=== PATIENT | male | born 1950 | race Caucasian/White ===

== ENCOUNTER 2018-03-31 13:21 | Outpatient (CLI) | payer MEDICARE ==
[~2018-03-31 13:21] MED LIST: Gadobenate Dimeglumine 529 MG/1 ML (20ML VIAL) ONE
--- NOTE | 2018-03-31 16:25 | MRI ---
MRI PELVIS AND PROSTATE WITH AND WITHOUT CONTRAST: HISTORY: Prostate cancer, status post biopsy eight weeks ago. Sarah 7 in the right base of the prostate. COMPARISON: None. TECHNIQUE: Multiplanar, multisequence MR images were obtained of the prostate with and without IV contrast. FINDINGS: There is moderate hypertrophy of the central gland, consistent with BPH. Prostate volume is approxim ately 63 mL. There is a small amount of T1 signal in the peripheral zone of the right prostate, cons istent with blood from previous biopsy. There is a wedge-shaped area demonstrating 1.4 cm of low T2 signal in the right peripheral zone of the prostate, near the mid portion of the gland. This demonst rates moderately hypointense signal on the ADC map and isointense to mildly hyperintense signal on th e DWI sequence, in this location. There is subtle enhancement of this region. No other abnormality is seen in the peripheral zone of the prostate or in the central gland. A prominent median lobe of t he prostate is seen. There are scattered diverticula in the colon. No pelvic adenopathy is seen. The seminal vesicles an d neurovascular bundles are intact. There is a lipoma within one of the right hip rotator muscles. IMPRESSION: There is a lesion in the peripheral zone of the right prostate. This is a PI-RADS category 3 lesion but with enhancement of this lesion, it is upgraded to a PI-RADS category 4 lesion. This patient holden s a high likelihood that a clinically significant cancer is present. POS: TYRONE
== END 2018-03-31 13:22 | disposition home or self-care (01) ==
LOC: TBSIIMAG 13:21
PROVIDERS: ATTEND Urology
DX: C61 Malignant neoplasm of prostate (principal); N42.9 Disorder of prostate, unspecified
CPT/HCPCS: 72197; 82565; A9579

== ENCOUNTER 2018-07-15 01:03 | Outpatient (CLI) | payer MEDICARE ==
--- NOTE | 2018-07-15 13:46 | RAD ---
TWO VIEWS CHEST: Comparison: None. History: Pre-operative radiograph. FINDINGS: Two views of the chest show normal sized cardiomediastinal silhouette. There is no evidence of consol idation, mass, or pleural effusion. The bones are unremarkable. IMPRESSION: No evidence of acute cardiopulmonary disease. POS: C
[2018-07-15 14:20] LABS: #Basophils 0.1 thou/uL (0.0-0.2); #Eosinphils 0.1 thou/uL (0.0-0.7); #Lymphocytes 1.6 thou/uL (1.20-3.40); #Monocytes 0.6 thou/uL (0.11-0.59); #Neutrophils 3.6 thou/uL (1.40-6.50); %Basophils 0.9 % (0.0-1.0); %Eosinophils 2.1 % (0.0-10.0); %Lymphocytes 26.1 % (21.0-51.0); %Monocytes 9.5 % (0.0-10.0); %Neutrophils 61.4 % (42.0-75.0); Hemoglobin 14.7 g/dL (14.0-18.0); Mean Corpuscular HGB CONC 33.6 g/dL (32.0-36.0); Mean Corpuscular Hemoglobin 32.1 pg (27.0-31.0); Mean Corpuscular Volume 95.4 fL (78.0-98.0); Platelet Count 336 thou/uL (130-400); RBC Distribution Width 11.8 % (11.5-14.5); Red Blood Cell (RBC) Count 4.58 mill/uL (4.70-6.10); White Blood Cell (WBC) Count 5.9 thou/uL (4.8-10.8)
[2018-07-15 14:26] LABS: Prothrombin Time 13.1 SEC (12.0-14.7)
[2018-07-15 14:30] LABS: Bilirubin Negative (Negative); Blood, Urine Negative (Negative); Clarity CLEAR (Clear); Glucose, Urine (Dipstick) Negative (Negative); Leukocyte Trace (Negative); Nitrite Negative (Negative); Protein, Urine (Dipstick) Negative (Neg-Trace); Specific Gravity, Urine 1.008 (1.002-1.036); Urobilinogen 0.2 mg/dL (0.2-1.0); pH, Urine 5.5 (5.0-9.0)
[2018-07-15 14:41] LABS: Bacteria/HPF None Seen HPF (None Seen); Hyaline Casts/LPF 0-3 HYALINE CAST LPF (0-3 Hyaline); RBC/HPF 0-3 HPF (0-3); Squamous Epithelial None Seen HPF (0-3); WBC/HPF None Seen HPF (0-3)
[2018-07-15 14:42] LABS: ALT (SGPT) 36 U/L (8-55); AST (SGOT) 31 U/L (5-34); Albumin 4.9 g/dL (3.4-4.8); Alkaline Phosphatase 53 U/L (40-150); Anion Gap 16 mmol/L (10-20); BUN (Urea Nitrogen) 8 mg/dL (8.4-25.7); Bilirubin, Total 1.2 mg/dL (0.2-1.2); Calc. Creatinine Clearance 0 mL/min (70-130); Carbon Dioxide 24 mmol/L (23-31); Chloride 96 mmol/L (98-107); Estimated GFR-MDRD Greater than 90; Globulin 3.1 g/dL (2.4-3.5); Glucose 73 mg/dL (80-115); Potassium 4.2 mmol/L (3.5-5.1); Sodium 132 mmol/L (136-145)
[2018-07-15 14:56] LABS: Urine Culture Reflex Yes Yes
== END 2018-07-15 01:04 | disposition home or self-care (01) ==
LOC: LABBT 01:03
PROVIDERS: ATTEND Urology
DX: Z01.812 Encounter for preprocedural laboratory examination (principal); C61 Malignant neoplasm of prostate
CPT/HCPCS: 71046; 80053; 81001; 85025; 85610; 85730; 87086

== ENCOUNTER 2018-07-15 14:30 | Inpatient (IN) | payer MEDICARE ==
[2018-07-15 12:13] VITALS: BMI 25.5
[2018-07-24] MEDS ORDERED: cefOXitin Sodium/Dextrose,Iso 1 GM in Premix Bag 50 BAG IVPB SCH (06:30)
[2018-07-24] MEDS ORDERED: Gentamicin Sulfate 80 MG in Premix Bag 1 BAG IVPB SCH (06:30)
[2018-07-24] MEDS ORDERED: Fentanyl 100 MCG/2 ML VIAL ONE ×5 (06:38→15:29)
[2018-07-24] MEDS ORDERED: Midazolam HCl 2 mg/2 ml Vial ONE (06:38)
[2018-07-24] MEDS ORDERED: Dexamethasone 4 mg/ml Vial ONE (06:38)
[2018-07-24] MEDS ORDERED: Iothalamate Meglumine 60% 50 ML VIAL FS ONE (07:13)
[2018-07-24] MEDS ORDERED: Fentanyl 250 MCG/5 ML VIAL ONE (08:49)
[2018-07-24] MEDS ORDERED: B & O ONE (09:53)
[2018-07-24] MEDS ORDERED: Promethazine HCl 25 MG/ML VIAL IM PRN (09:58)
[2018-07-24] MEDS ORDERED: Promethazine HCl 25 MG/ML VIAL SLOW IVP PRN (09:58)
[2018-07-24] MEDS ORDERED: Ondansetron HCl/PF 4 MG/2 ML Vial IVP PRN (09:58)
[2018-07-24] MEDS ORDERED: Bupivacaine HCl 0.5%/Epinephrine 1:200,000/PF 30 ml Vial ONE (13:47)
[2018-07-24 15:25] LABS: Hemoglobin 13.4 g/dL (14.0-18.0); Mean Corpuscular HGB CONC 32.9 g/dL (32.0-36.0); Mean Corpuscular Volume 97.3 fL (78.0-98.0); Mean Platelet Volume 7.6 fL (7.4-10.4); Platelet Count 287 thou/uL (130-400); RBC Distribution Width 11.9 % (11.5-14.5); White Blood Cell (WBC) Count 11.3 thou/uL (4.8-10.8)
--- NOTE | 2018-07-24 15:38 | RAD ---
ONE VIEW ABDOMEN: HISTORY: Evaluate stent placement. FINDINGS: Nonspecific bowel gas pattern. Double-J left and right ureteral stents appear to be appropriately positioned. There appears to be subcutaneous air in the left hemiabdomen which may be secondary to a drainage cat heter. IMPRESSION: 1. Bilateral ureteral stents as above. 2. Subcu air in the left hemiabdomen likely due to introduction of a drainage catheter which ter minates in the pelvis. POS: BRAYAN
[2018-07-24 15:39] LABS: Anion Gap 14 mmol/L (10-20); BUN (Urea Nitrogen) 9 mg/dL (8.4-25.7); Calc. Creatinine Clearance 91 mL/min (70-130); Calcium 9.2 mg/dL (7.8-10.44); Carbon Dioxide 23 mmol/L (23-31); Chloride 102 mmol/L (98-107); Estimated GFR-MDRD 81; Glucose 152 mg/dL (80-115); Potassium 4.1 mmol/L (3.5-5.1); Sodium 135 mmol/L (136-145)
[2018-07-24] MEDS ORDERED: oxyCODONE 5 MG TAB PO PRN (16:02)
[2018-07-24] MEDS ORDERED: Hyoscyamine Sulfate SL 0.125 mg Tablet SL PRN (16:02)
[2018-07-24] MEDS ORDERED: Fentanyl 100 MCG/2 ML VIAL SLOW IVP PRN (16:02)
[2018-07-24] MEDS ORDERED: Oxybutynin 5 MG TAB PO PRN (16:02)
[2018-07-24] MEDS ORDERED: diphenhydrAMINE 25 MG CAP PO PRN (16:02)
[2018-07-24] MEDS ORDERED: hydrALAZINE 20 MG/ML VIAL SLOW IVP PRN (16:02)
[2018-07-24] MEDS ORDERED: Ondansetron PF 4 MG/2 ML Vial IVP PRN (16:02)
[2018-07-24] MEDS ORDERED: Mag-Al 1200 mg/1200 mg/30 ML UDCUP PO PRN (16:02)
[2018-07-24] MEDS ORDERED: Dexamethasone 20 MG/5 ML VIAL ONE (16:26)
[2018-07-24] MEDS ORDERED: ePHEDrine 50 MG/ML VIAL ONE (16:26)
[2018-07-24] MEDS ORDERED: Ondansetron PF 4 MG/2 ML Vial ONE (16:26)
[2018-07-24] MEDS ORDERED: PROPOFOL 200 MG/20 ML VIAL ONE (16:26)
[2018-07-24] MEDS ORDERED: Rocuronium Bromide 10 MG/ML (10ML VIAL) ONE (16:26)
[2018-07-24] MEDS ORDERED: Glycopyrrolate 0.2 MG/ML 5 ML SYRINGE ONE (16:26)
[2018-07-24] MEDS: Acetaminophen 500 MG TAB PO SCH ×2 (16:49→21:14)
[2018-07-24] MEDS: cefOXitin 1.5 GM in Sodium Chloride 0.9% 100 ML IVPB SCH (16:49)
[2018-07-24] MEDS: oxyCODONE 5 MG TAB PO PRN (16:50)
[2018-07-24] MEDS: Sodium Chloride 0.9% 1,000 ML IV SCH ×2 (16:54→23:26)
--- NOTE | 2018-07-24 17:59 | OP ---
DATE OF PROCEDURE: 07/24/2018 SERVICE: Urology. PREOPERATIVE DIAGNOSIS: Prostate cancer. POSTOPERATIVE DIAGNOSIS: Prostate cancer. PROCEDURE PERFORMED: Robot-assisted laparoscopic prostatectomy with bilateral nerve sparing. INDICATIONS FOR PROCEDURE: Mr. Del Castillo is a 68-year-old white male, who [place] with an elevated PSA of 8. This subsequently when rechecked was came down to 6. He underwent a prostate biopsy which demonstrated [place] 3 + 4 prostate cancer in four cores, primarily on the right. An MRI of the prostate demonstrated no evidence of extracapsular extension, seminal vesicle invasion, or metastatic disease into the lymph nodes. Risks and benefits of treatment options were discussed and he has elected to go for robotic-assisted laparoscopic prostatectomy. DESCRIPTION OF PROCEDURE: After identification of armband and verification of consent, the patient was brought back initially in the cystoscopy suite, where he underwent general anesthesia with endotracheal intubation. He had been prepped with the ERAS protocol. A 21-[place] rigid cystoscope was introduced per urethra into the bladder. The large median lobe was noted upon entry. Both ureters were found in orthotopic location. The right ureter was first cannulated with a 0.035 Sensor wire up to the level of the renal pelvis. A 6 x 26 double-J stent was advanced over the Sensor wire up to the level of renal pelvis and then the wire removed leaving a good curl in the kidney and a good curl in the bladder. The same procedure was repeated on the left for another 6 x 26 double-J stent so that he had bilateral stents in , as the ureters were in relatively close proximity to the large median lobe and I did not want to risk injury of the ureters. While the patient was still asleep, he was transported from the cystoscopy suite over to the robotic room where he was positioned in the standard robotic fashion in the low lithotomy with approximately 40-degree angled Trendelenburg. He was then prepped and draped in the usual sterile fashion. A 16-[place] Banda catheter was inserted to the patient's bladder, and then Veress needle entry was used to insufflate the pneumoperitoneum under high flow low pressure. Once pneumoperitoneum was achieved, a small incision was made below the umbilicus for entry using a 12 mm port. Inspection of the peritoneum demonstrated no vascular bowel injuries and the peritoneum was favorable to proceed forward with the surgery. Remainder of the ports were placed in the standard robotic fashion under direct vision with a 15 mm robotic port on the right along with an 11 mm integration assistant port and 5 mm integration assistant port. The left side had two 8 mm ports. The robot was then docked and the robotic portion of the surgery was begun. We began by mobilizing the sigmoid colon which was somewhat tethered to the left peritoneal wall. The rectum was then retracted cephalad, and an incision was made on the anterior aspect of the rectovesical pouch. Dissection was carried out to the seminal vesicles and vas deferens, which were identified and then from the surrounding tissues. Cautery was used for the majority of dissection except near the tips of the seminal vesicles and along the lateral aspect of the seminal vesicle dissection, where minimal cautery was used to avoid nerve injury as the patient did desire a nerve-sparing prostatectomy. Once the seminal vesicles were completely cleared, the posterior space was developed below Denonvilliers fascia along the rectum up to near the apex of the prostate. A Surgicel was left in the space and then attention turned to the bladder. Incision was made lateral to both medial umbilical ligaments into the space of Retzius bilaterally. The space was developed until the pubic arch could be identified. The medial umbilical ligaments were then cauterized and divided, and a connection made between the two cauterized sites to mobilize the bladder. The bladder was then dropped by dissecting through the loose areolar tissue, holding the bladder up to the anterior abdominal wall. This was carried out until the entire pubic arch could be identified. This was cleared off the surrounding tissues and then the periprosthetic space developed with blunt dissection and electrocautery. The preprostatic fat was mobilized and removed off the prostate and bladder neck and sent off for routine pathologic evaluation. The endopelvic fascia was then divided on the right and then the left, taking care to minimize cautery usage towards the nerves. Once the space was fully dissected, the puboprostatic ligaments were taken down with the monopolar cautery, and then the vascular stapler was used to divide the dorsal venous complex, ensuring that the urethral catheter was fully mobile and was not involved within the stapler jaws. Once DVC was divided, attention was turned to the bladder neck, which was divided using monopolar cautery. Dissection was carried down until the catheter could be identified. The bladder neck had to be extended slightly in order to deliver the median lobe through the dissection plane. A suture was brought in to retract the median lobe and prostate anteriorly to allow for adequate exposure of the backside of the median lobe. Dissection was carried out through the posterior aspect of the median lobe into the bladder neck and then into the previously dissected space where the seminal vesicles had been previously identified. The seminal vesicles were delivered upward along with the vas deferens and the previously placed Surgicel was removed. The pedicles were then ligated with a 2-0 V-Loc stitch on both sides and then the pedicle was dissected sharply. If cautery was used, it was pinpoint bipolar cautery while irrigating with iced/chilled saline to avoid for thermal injury to the nerves. The nerves were able to be dissected off along the length of the prostate all the way to the apex of the prostate. The pedicles were divided without clips using pinpoint bipolar cautery only on the exposed vessels with chilled saline irrigation during cauterization to avoid neural injury. The remainder of the DVC was then divided with monopolar cautery, and the urethra was dissected free of its surrounding attachments. The neurovascular bundles were dissected free on both sides of the prostate to complete the nerve sparing. The urethra was divided close to the prostate for adequate urethral stump. The rectourethralis subsequently divided. The prostate was then freed and deposited in the right pericolic gutter. The neurovascular bundles were then inspected. There did not appear to be any bleeding or anything concerning for oozing. There did not appear to be any kind of rectal injury. Surgicel was laid down over the rectal bed, and the Akshat stitch was then placed using a 2-0 V-Loc suture to approximate the base of the bladder and the urethra. The anastomotic suture was then completed using a 2-0 V-Loc suture in a running fashion circumferentially around the bladder neck and urethra, taking care not to injure the nerves nearby during the anastomosis. The final catheter which was an 18-[place] Banda was passed with ease into the bladder, and 15 mL of sterile water placed into the balloon. The bladder was leak tested. There did not appear to be any leak from the anastomosis. The catheter was then secured against the bladder neck, and Tisseel spray was sprayed around the periprosthetic space and previous prostatic fossa along with the pubic arch and anywhere else that was at risk for bleeding. The specimens were then placed into Endopouch bag, and #19 ALIVIA was brought into the #3 arm and positioned posterior to the bladder. The robot was then undocked, and a Bulmaro-Bebo needle was used to close the 15 mm and 11 mm port. The specimen bag was also transferred out to the umbilical camera port. The insufflation was then taken down and the specimen was extracted through the umbilical incision. The incision was then closed with 0 Vicryl with [id number] sutures. The skin was then closed with a 4-0 Monocryl in a subcuticular fashion and Dermabond was applied. The surgeon placed a 16-A B and O suppository directly into the patient's rectum. There was no blood on the examining gloved finger. The catheter was irrigated and found to be light pink with no clots. The patient had his catheter affixed with a StatLock. He was then awakened and taken to PACU for recovery in stable condition. COMPLICATIONS: None. ESTIMATED BLOOD LOSS: Approximately 400 mL. RETAINED TUBES AND DRAINS: An 18-[place] Banda catheter, #19 ALIVIA drain. SPECIMENS: Prostate, bilateral seminal vesicles, periprosthetic fat. DISPOSITION: The patient will be kept in the hospital overnight. We will plan possible discharge in the morning pending his labs and how he is feeling. Job ID: [id number] [facility]
[2018-07-24] MEDS: Ketorolac Tromethamine 30 MG/ML VIAL IVP SCH ×2 (18:11→23:22)
[2018-07-24] MEDS: Docusate 100 MG CAP PO SCH (21:13)
[2018-07-24] MEDS: traMADol HCl 50 MG TAB PO SCH (21:14)
[2018-07-24] MEDS: Nicotine 21 MG PATCH TOP SCH (21:35)
[2018-07-25] MEDS: cefOXitin 1.5 GM in Sodium Chloride 0.9% 100 ML IVPB SCH ×2 (00:45→10:39)
[2018-07-25] MEDS: oxyCODONE 5 MG TAB PO PRN ×4 (02:47→18:26)
[2018-07-25] MEDS: Acetaminophen 500 MG TAB PO SCH ×4 (04:32→21:35)
[2018-07-25 06:03] LABS: #Lymphocytes 1.4 thou/uL (1.20-3.40); #Neutrophils 6.9 thou/uL (1.40-6.50); %Basophils 0.1 % (0.0-1.0); %Eosinophils 0.1 % (0.0-10.0); %Lymphocytes 14.8 % (21.0-51.0); %Monocytes 10.9 % (0.0-10.0); %Neutrophils 74.2 % (42.0-75.0); Hemoglobin 10.7 g/dL (14.0-18.0); Mean Corpuscular HGB CONC 33.2 g/dL (32.0-36.0); Mean Corpuscular Hemoglobin 32.6 pg (27.0-31.0); Mean Corpuscular Volume 98.1 fL (78.0-98.0); Mean Platelet Volume 7.5 fL (7.4-10.4); Platelet Count 254 thou/uL (130-400); RBC Distribution Width 11.8 % (11.5-14.5); Red Blood Cell (RBC) Count 3.29 mill/uL (4.70-6.10); White Blood Cell (WBC) Count 9.3 thou/uL (4.8-10.8)
[2018-07-25] MEDS: Ketorolac Tromethamine 30 MG/ML VIAL IVP SCH ×4 (06:16→23:36)
[2018-07-25 06:21] LABS: Anion Gap 13 mmol/L (10-20); BUN (Urea Nitrogen) 8 mg/dL (8.4-25.7); Calc. Creatinine Clearance 107 mL/min (70-130); Calcium 8.5 mg/dL (7.8-10.44); Carbon Dioxide 21 mmol/L (23-31); Chloride 103 mmol/L (98-107); Estimated GFR-MDRD Greater than 90; Glucose 108 mg/dL (80-115); Potassium 3.9 mmol/L (3.5-5.1); Sodium 133 mmol/L (136-145)
[2018-07-25] MEDS ORDERED: Hydrochlorothiazide 25 MG TAB PO SCH (09:00)
[2018-07-25] MEDS: traMADol HCl 50 MG TAB PO SCH ×2 (09:49→21:42)
[2018-07-25] MEDS: Lisinopril 20 MG TAB PO SCH (09:50)
[2018-07-25] MEDS: Docusate 100 MG CAP PO SCH ×2 (10:07→21:35)
[2018-07-25] MEDS: Sodium Chloride 0.9% 1,000 ML IV SCH (18:29)
[2018-07-25] MEDS: Nicotine 21 MG PATCH TOP SCH (21:36)
[2018-07-26] MEDS: Acetaminophen 500 MG TAB PO SCH ×2 (03:56→10:11)
[2018-07-26] MEDS: Ketorolac Tromethamine 30 MG/ML VIAL IVP SCH ×2 (06:13→13:55)
[2018-07-26] MEDS ORDERED: Hydrochlorothiazide 25 MG TAB PO SCH ×2 (09:00)
[2018-07-26] MEDS: traMADol HCl 50 MG TAB PO SCH (09:01)
[2018-07-26] MEDS: Lisinopril 20 MG TAB PO SCH (09:02)
[2018-07-26] MEDS: Docusate 100 MG CAP PO SCH ×2 (09:03→09:04)
[2018-07-26 12:03] VITALS: BP 160/89; TEMP 97.9
--- NOTE | 2018-07-26 14:07 | PRG ---
DATE OF SERVICE: 07/25/2018 SUBJECTIVE: The patient states he is doing well currently. He had a lot of severe gas pain last night with abdominal distention. He was advised to walk which then resulted in the gas dispersing and him passing a large amount of gas. From that point, he has had no pain and states he is feeling very good. His appetite is slightly increased, but he is still on a clear liquid diet. He denies any nausea or vomiting. OBJECTIVE: VITAL SIGNS: Temperature 97.9, pulse 88, respirations 16, blood pressure 144/89, saturation 97% on room air. GENERAL: No apparent distress. CARDIOVASCULAR: Regular rate and rhythm. ABDOMEN: Soft, mildly distended, and nontender. Incision is clean, dry, and intact. : Banda catheter in place with clear yellow urine. ALIVIA with serosanguineous fluid. EXTREMITIES: No clubbing, cyanosis, or edema. LABORATORY EVALUATION: The full set of labs in the [employer] system which I have reviewed. Of note, the patient's white count is 9.3 with hemoglobin of 10.7. Creatinine is 0.79 with a sodium of 133. ASSESSMENT AND PLAN: A 68-year-old white male status post robot-assisted laparoscopic prostatectomy postop day 1 with some gaseous distention and mild ileus which has resolved with walking. He is doing much better, but has requested a stay in the hospital one additional night. I think this is not unreasonable to ensure that he does not develop a full ileus and his bowels are working okay. Since he is hungry and passing a lot of gas now, I will go ahead and advance him to regular diet and see how he does. If he is doing well, he could probably be discharged tomorrow. Job ID: [id number]
--- NOTE | 2018-07-26 14:21 | PRG ---
DATE OF SERVICE: 07/26/2018 SUBJECTIVE: The patient states he is doing very well. He had no pain overnight and feels excellent. He is tolerating a regular diet without problems. He has been walking. He is passing a lot of gas, but has not had a bowel movement. Denies any nausea or vomiting. OBJECTIVE: VITAL SIGNS: Temperature 97.9, pulse 74, respirations 18, blood pressure 160/89, and saturation 96% on room air. GENERAL: No apparent distress, communicating, and alert. CARDIOVASCULAR: Regular rate and rhythm. ABDOMEN: Soft, nontender, and nondistended. Positive bowel sounds. Nondistended. Incisions clean, dry, and intact. ALIVIA serosanguineous. : Banda catheter in place with clear yellow urine. EXTREMITIES: No clubbing, cyanosis, or edema. LABORATORY DATA: On laboratory evaluation, there are no new labs to review today. ASSESSMENT: A 68-year-old white male with prostate cancer, status post robot assisted laparoscopy technique, postop day two with good recovery of bowel function. No pain. I think the patient can have a ALIVIA removed. It is only put out 40 mL overnight. He can go home with his Banda catheter in place and I will. PLAN: To see him back in 2 weeks for a cystogram and void trial. This concludes an operative SI progress note for Gamal Del Castillo being dictated by Dr. Sanz. Job ID: [id number]
--- NOTE | 2018-07-26 14:23 | DIS ---
DATE OF ADMISSION: 07/24/2018 DATE OF DISCHARGE: 07/26/2018 ADMITTING DIAGNOSIS: Prostate cancer. DISCHARGE DIAGNOSIS: Prostate cancer. DISCHARGING PHYSICIAN: Jakob Sanz MD PROCEDURE PERFORMED: Robot-assisted laparoscopic prostatectomy with bilateral nerve-sparing. BRIEF HISTORY: Mr. Del Castillo is a 68-year-old white male with [place] 3 + 4 prostate cancer in 4 cores with a PSA of 6. He has elected to undergo a prostatectomy. Full H and P can be found in the scanned portion of the [employer] system. HOSPITAL COURSE: After his surgery (please see operative note for details), the patient was kept in the hospital overnight for recovery. He had a significant amount of gas distention due to drinking too much fluids too quickly on his first night. This caused him significant discomfort, but with walking, he was able to disperse this and felt significantly better after passing a large amount of gas. He elected to stay in the hospital an additional night. He remained on the ERAS protocol with almost no pain after his gas pains resolved. He tolerated a regular diet and was ambulating well. He had learned how to take care of his catheter. His ALIVIA only put out approximately 130 mL in the first night and 40 mL the second night. The ALIVIA was removed prior to discharge. He felt excellent and was cleared for discharge on postoperative day #2. DISPOSITION: Discharge to home with Banda catheter. DISCHARGE CONDITION: Good. DISCHARGE MEDICATIONS: Include resuming all of his home medications. In addition, he will be given [place] 5/325 mg 1 to 2 tabs p.o. q.4 hours p.r.n. pain and oxybutynin 5 mg p.o. t.i.d. p.r.n. bladder spasms. He will follow up with me in 2 weeks for a cystogram and void trial. DISCHARGE INSTRUCTIONS: Include no heavy lifting or strenuous activities, to take care of his catheter at all times and avoid pulling or tugging. He is not to submerge, but may shower and is not to lift anything over 20 pounds. He is not to drive while the catheter is in. Job ID: [id number]
== END 2018-07-26 14:21 | disposition home or self-care (01) | DRG 707 ==
LOC: SURG A 07-24 05:33 → SURG B 07-24 15:56
PROVIDERS: ADMIT Urology; ATTEND Urology
PROC: 0VT04ZZ Resection of Prostate, Percutaneous Endoscopic Approach (ICD-10-PCS; principal; 2018-07-24)
PROC: 0VT34ZZ Resection of Bilateral Seminal Vesicles, Percutaneous Endoscopic Approach (ICD-10-PCS; 2018-07-24)
PROC: 8E0W4CZ Robotic Assisted Procedure of Trunk Region, Percutaneous Endoscopic Approach (ICD-10-PCS; 2018-07-24)
DX: C61 Malignant neoplasm of prostate (principal); K56.7 Ileus, unspecified; Z79.899 Other long term (current) drug therapy
CPT/HCPCS: 36415; 74018; 76000; 80048; 85025; 85027; 86850; 86900; 86901; 88309; C1769; J0670; J0694; J1100; J1580; J1642; J1885; J2250; J2405; J2704; J3010; J3490; J7050; Q9961

== ENCOUNTER 2018-08-05 09:21 | Outpatient (CLI) | payer MEDICARE ==
--- NOTE | 2018-08-05 11:38 | RAD ---
CYSTOGRAM: History: Prostatectomy. FINDINGS: Approximately 150 cc of water soluable contrast was instilled into the urinary bladder via the indwel ling Banda catheter. Bilateral ureteral stents are in place. There is some thickening of the bladder trabecula. No evidence of leak. The ureteral stents allow for reflux and incomplete distention of the bladder. Excess contrast was drained. The patient tolerated the procedure well and was dismissed in good condition. IMPRESSION: No evidence for contrast leak from the urinary bladder. POS: TYRONE
== END 2018-08-05 09:22 | disposition home or self-care (01) ==
LOC: RAD 09:21
PROVIDERS: ATTEND Urology
DX: C61 Malignant neoplasm of prostate (principal)
CPT/HCPCS: 51600; 74430

== ENCOUNTER 2018-11-06 01:22 | Outpatient (CLI) | payer MEDICARE ==
[2018-11-06 12:32] LABS: Hemoglobin 14.6 g/dL (14.0-18.0); Mean Corpuscular HGB CONC 34.8 g/dL (32.0-36.0); Mean Corpuscular Hemoglobin 32.6 pg (27.0-31.0); Mean Corpuscular Volume 93.7 fL (78.0-98.0); Platelet Count 329 thou/uL (130-400); RBC Distribution Width 11.6 % (11.5-14.5); Red Blood Cell (RBC) Count 4.48 mill/uL (4.70-6.10); White Blood Cell (WBC) Count 6.3 thou/uL (4.8-10.8)
[2018-11-06 12:33] LABS: Bilirubin Negative (Negative); Blood, Urine Small (Negative); Clarity CLEAR (Clear); Glucose, Urine (Dipstick) Negative (Negative); Leukocyte Negative (Negative); Nitrite Negative (Negative); Protein, Urine (Dipstick) Negative (Neg-Trace); Specific Gravity, Urine 1.014 (1.002-1.036); Urobilinogen 0.2 mg/dL (0.2-1.0)
[2018-11-06 12:35] LABS: Bacteria/HPF None Seen HPF (None Seen); Hyaline Casts/LPF 0-3 HYALINE CAST LPF (0-3 Hyaline); RBC/HPF 0-3 HPF (0-3); Squamous Epithelial None Seen HPF (0-3); WBC/HPF None Seen HPF (0-3)
[2018-11-06 12:50] LABS: Anion Gap 16 mmol/L (10-20); BUN (Urea Nitrogen) 11 mg/dL (8.4-25.7); Calc. Creatinine Clearance 0 mL/min (70-130); Calcium 9.9 mg/dL (7.8-10.44); Carbon Dioxide 22 mmol/L (23-31); Chloride 99 mmol/L (98-107); Estimated GFR-MDRD 88; Glucose 91 mg/dL (80-115); Potassium 4.2 mmol/L (3.5-5.1); Sodium 133 mmol/L (136-145)
== END 2018-11-06 01:23 | disposition home or self-care (01) ==
LOC: LABBT 01:22
PROVIDERS: ATTEND Urology
DX: N32.0 Bladder-neck obstruction (principal)
CPT/HCPCS: 80048; 81001; 85027; 85610; 85730; 87086; 93005; 93010